=== PATIENT | male | born 2000 | race Caucasian/White ===

== ENCOUNTER 2021-11-05 01:13 | Emergency (ER) | payer OTHER | END 2021-11-05 03:30 | disposition home or self-care (01) | LOC: FER 01:13 | DX: S80.212A Abrasion, left knee, initial encounter (principal); V47.5XXA Car driver injured in collision with fixed or stationary object in traffic accident, initial encounter; Z28.311 Partially vaccinated for COVID-19 | CPT/HCPCS: 99283 ==